=== PATIENT | male | born 1955 | race Caucasian/White ===

== ENCOUNTER → 2021-03-11 | Outpatient (CLI) | payer MEDICARE, OTHER ==
[~2021-03-11] MED LIST: 24 HOUR ALLERG9.9 ML; ADVAIR 100-501 EACH INH; ALBUTEROL1.25 MG/3 INH; AMITRIPTYLINE H25 MG PO; BANOPHEN25 M1 PO; BANOPHEN25 MG PO; CELEXA20 MG PO; CITALOPRAM HBR20 MG PO; CLARITIN 10MG T10 MG PO; COL-RITE250 MG PO; CYCLOBENZAPRINE10 MG PO; ECOTRIN325 MG PO; ELAVIL 25 MG TA25 MG PO; ELIQUIS 2.5 MG2.5 MG PO; FLEXERIL 10 MG10 MG PO; FLONASE 0.05% N16 GM; FLUZONE QU60 MCG/015 IM; GABAPENTIN600 MG PO; HYDROCODON-ACE1 EAC6 PO; HYDROXYZINE PAM50 MG PO; IRON325 M1 PO; LEVOTHYROXINE50 MCG PO; LORATADINE10 MG PO; MELOXICAM7.5 MG PO; MOBIC7.5 MG PO; NEURONTIN 300300 MG PO; NEXIUM40 MG PO; NORCO 10-325 T1 EACH PO; NORCO 7.5-3251 EACH PO; PERCOCET 7.5-31 EACH PO; PHENERGAN 25 MG25 M1 PO; PROMETHAZINE HC25 M1 PO; SIMVASTATIN20 MG PO; SYMBICORT 160-1 INHA INH; SYNTHROID50 MCG PO; ULTRAM50 MG PO; VENTOLIN HFA 66.7 GM INH; VISTARIL 50 MG50 MG PO; ZOCOR20 MG PO; ZOFRAN4 MG PO
== END ==
LOC: EXRD 09:42
DX: M81.0 Age-related osteoporosis without current pathological fracture (principal); S22.059A Unspecified fracture of T5-T6 vertebra, initial encounter for closed fracture
CPT/HCPCS: 77080

== ENCOUNTER → 2021-08-06 | Outpatient (CLI) | payer MEDICARE, OTHER ==
[2021-08-06 13:48] LABS: WHITE BLOOD COUNT 4.6 K/UL (4.5-11.0)
== END ==
LOC: CT 12:45
PROVIDERS: Nurse Practitioner
DX: T84.84XA Pain due to internal orthopedic prosthetic devices, implants and grafts, initial encounter (principal); T84.038A Mechanical loosening of other internal prosthetic joint, initial encounter; R59.0 Localized enlarged lymph nodes; R91.1 Solitary pulmonary nodule
CPT/HCPCS: 36415; 73200; 85048; 85652; 86140